=== PATIENT | female | born 1995 | race Two or more races ===

== ENCOUNTER 2020-01-17 14:46 | Emergency (ER) | payer MEDICAID ==
[~2020-01-17] VITALS: Ht 157.5 cm; Wt 46.7 kg
[2020-01-17 15:11] VITALS: BP 126/84; Ht 157.5 cm; Wt 46.7 kg
== END 2020-01-17 16:46 | disposition home or self-care (01) ==
LOC: ED 14:46
DX: R21 Rash and other nonspecific skin eruption (principal); L53.9 Erythematous condition, unspecified; R53.83 Other fatigue
CPT/HCPCS: 82962; J7512